=== PATIENT | male | born 2000 ===

== ENCOUNTER 2024-12-01 08:01 | Outpatient (CLI) | payer OTHER | END 2024-12-01 08:10 | disposition home or self-care (01) | LOC: SONOGRAMA 08:01 | PROVIDERS: ATTEND General Practice | DX: R10.13 Epigastric pain (principal); K76.0 Fatty (change of) liver, not elsewhere classified; B96.81 Helicobacter pylori [H. pylori] as the cause of diseases classified elsewhere; R11.0 Nausea; K21.9 Gastro-esophageal reflux disease without esophagitis; N20.0 Calculus of kidney ==